=== PATIENT | female | born 1985 | race Caucasian/White ===

== ENCOUNTER 2016-08-16 18:46 | Emergency (ER) | payer OTHER ==
[~2016-08-16] VITALS: Ht 162.6 cm; Wt 125.0 kg
[~2016-08-16 18:46] MED LIST: ALD250 GTB; PREN1TAB17 PO; [UNRECOGNIZED DRUG - CODE] PO
[2016-08-16 19:01] VITALS: Ht 162.6 cm; Wt 125.0 kg
--- NOTE | 2016-08-16 20:13 | ERD ---
ER Documentation Chief Complaint Date/Time DATE: 08/16/16 TIME: 20:12 Chief Complaint Vaginal bleed and 12 weeks HPI This is a 30-year-old female who presents the emergency department today complaining of vaginal bleeding since August 12. Patient states that she passed a large clot today. States she is concerned because she is 12 weeks . Denies any fevers or chills, nausea vomiting or abdominal pain or dysuria. States she has a point with her LOCK[employer] POCKET [employer]TER tomorrow ROS All systems reviewed and are negative except as per history of present illness. Medications Home Meds Active Scripts Cephalexin* (Keflex*) 500 Mg Capsule, 500 MG PO QID for 7 Days, CAP Prov:ALONSO PUGH PA-C 08/16/16 Acetaminophen* (Tylophen*) 500 Mg Capsule, 1 CAP PO Q6H Y for PAIN AND OR ELEVATED TEMP, #30 CAP Prov:ALONSO PUGH PA-C 08/16/16 Reported Medications Diphenhydramine Hcl (ALLERGY MEDICATION) 25 Mg Tablet, 25 MG PO Q6 03/26/13 Vit-Iron Fumarate-FA ( Tablet) 1 Each Tablet, 1 EACH PO DAILY 03/13/13 Methyldopa* (Aldomet*) 250 Mg Tab, 250 MG GTB TID 12/19/12 Allergies Allergies: Coded Allergies: No Known Allergy (Unverified , 08/16/16) PMhx/Soc History of Surgery: No Anesthesia Reaction: No Hx Neurological Disorder: No Hx Respiratory Disorders: No Hx Cardiac Disorders: Yes (hypertension) Hx Psychiatric Problems: No Hx Miscellaneous Medical Probl: No Hx Alcohol Use: No Hx Substance Use: No Hx Tobacco Use: No Smoking Status: Never smoker Physical Exam Vitals Vital Signs Date Time Temp Pulse Resp B/P Pulse Ox O2 Delivery O2 Flow Rate FiO2 08/16/16 19:01 99.3 96 20 174/95 100 Physical Exam Const: Obese, no acute distress Head: Atraumatic Eyes: Normal Conjunctiva ENT: Normal External Ears, Nose and Mouth. Neck: Full range of motion..~ No meningismus. Resp: Clear to auscultation bilaterally Cardio: Regular rate and rhythm, no murmurs Abd: Soft, non tender, non distended. Normal bowel sounds Skin: No petechiae or rashes Neur: Awake and alert Psych: Normal Mood and Affect Result Diagram: 08/16/162037 Results 24 hrs Laboratory Tests Test 08/16/16 19:53 08/16/16 20:38 Urine Color PALE MATHEUS Urine Clarity HAZY Urine pH 6.0 Urine Specific [place] <=1.005 Urine Ketones NEGATIVE Urine Nitrite NEGATIVE Urine Bilirubin NEGATIVE Urine Urobilinogen 0.2 E.U./dL Urine Leukocyte Esterase 1+ Urine Microscopic RBC >200/HPF Urine Microscopic WBC 2-5/HPF Urine Squamous Epithelial Cells FEW Urine Bacteria RARE Urine Hemoglobin 3+ Urine Glucose NEGATIVE% Urine Total Protein NEGATIVE White Blood Count 6.310^3/ul Red Blood Count 3.8810^6/ul Hemoglobin 11.4g/dl Hematocrit 34.8% Mean Corpuscular Volume 89.7fl Mean Corpuscular Hemoglobin 29.4pg Mean Corpuscular Hemoglobin Concent 32.8g/dl Red Cell Distribution Width 13.2% Platelet Count 31348^3/UL Mean Platelet Volume 10.0fl Neutrophils % 68.7% Lymphocytes % 23.4% Monocytes % 6.2% Eosinophils % 0.8% Basophils % 0.3% Nucleated Red Blood Cells % 0.0/100WBC Neutrophils # 4.310^3/ul Lymphocytes # 1.510^3/ul Monocytes # 0.410^3/ul Eosinophils # 0.110^3/ul Basophils # 0.010^3/ul Nucleated Red Blood Cells # 0.010^3/ul Beta HCG, Quantitative 473.4mIU/ml DIAGNOSTIC IMAGING REPORT Patient: RHEA KENNY : 1985 Age: 30 Sex: F MR #: [id number] DOS: 08/16/161951 Ordering MD: ALONSO PUGH PA-C Location: [facility] Room/Bed: PROCEDURE: US OB Pelvis. CLINICAL INDICATION: , vaginal bleeding. TECHNIQUE: Multiple sonographic images of the pelvis were obtained utilizing a transabdominal and endovaginal technique. The images were reviewed on a PACS workstation. COMPARISON: None. FINDINGS: The uterus is visualized and measures 9.6 x 5.1 x 8.2 cm. The endometrium is thickened (1.8 cm). Doppler imaging reveals no vascularity within the endometrial canal. There is no evidence for free fluid. The right ovary has a normal echotexture and measures 3.1 x 1.4 x 2.7 cm. The left ovary measures 3.3 x 2.3 x 2.7 cm and contains a 2.3 cm mixed echogenicity structure, nonspecific. Vascular flow is demonstrated to both ovaries. No adnexal masses are noted. IMPRESSION: 1. No evidence of intrauterine . If there is clinical concern for ectopic , close follow-up with serial Beta HCG and possible repeat pelvic ultrasound is recommended. 2. Mildly thickened, avascular endometrium, nonspecific. 3. Nonspecific 2.3 cm mixed echogenicity structure within the left ovary, possibly a hemorrhagic cyst. A repeat pelvic ultrasound should be obtained and 6-12 weeks to reassess this finding. RPTAT: HTAR .Chetan Beavers MD, Date Time Electronically viewed and signed by .Chetan Beavers MD, on 08/16/2016 20:43 .R/ CC: ALONSO PUGH PA-C Procedures/[facility] This a 30-year-old female who presents to the emergency department today complaining of vaginal bleeding since August 12 and a clot that she passed today. Patient indicates she was approximately 12 weeks . Given this I did obtain a complete OB workup. Laboratory work shows no elevated white blood cell count. Her hemoglobin is mildly decreased. Platelets are within normal limits. UA shows 1+ leukocyte Estrace. Patient will be given a prescription for Keflex for urinary tract infection. Rh status A+ Positive Beta quant [id number] Ultrasound showed no evidence of intrauterine . Vascular flow is demonstrated both ovaries. There is no adnexal masses. There is a mildly thickened avascular endometrium which is nonspecific. There is a nonspecific 2.3 cm mixed echogenicity structure within the left ovary possibly hemorrhagic cyst. Patient symptoms at this time is consistent with vaginal bleeding in early . I have explained to the patient that this is possibly a failed versus early normal versus ectopic however patient has no abdominal pain on physical exam I have lower suspicion for that Patient also had hypertension here in the emergency department. She states that she has been told she has had hypertension in the past. She denies any headache or dizziness at this time. Low suspicion for hypertensive emergency or urgency however I have explained to the patient that she does need to follow- up with her primary care doctor in regards to this especially given that she had been . Patient understood. Patient denied any abdominal pain, nausea vomiting here in the emergency department. I will give her a prescription for Tylenol and Keflex for home for home. She was instructed to follow-up was planned with her [employer] POCKET [employer]TER tomorrow for a repeat beta quant. At this time the patient is stable for discharge and outpatient management. Patient should follow up with their PCP in the next 1-2 days. They may return to the emergency department sooner for any persistent or worsening of symptoms. Patient understood and agreed with the plan. Departure Diagnosis: Primary Impression: Vaginal bleeding in patient at less than 20 weeks gestation Additional Impression: UTI (urinary tract infection) Urinary tract infection type: site unspecified Hematuria presence: with hematuria Qualified Code: N39.0 - Urinary tract infection with hematuria, site unspecified Condition: Fair ALONSO PUGH PA-C Aug 16, 2016 20:13
[2016-08-16 20:21] LABS: ADD UMIC YES; URINE BILIRUBIN (Dip) NEGATIVE (NEGATIVE); URINE BLOOD (Dip) 3+ (NEGATIVE); URINE GLUCOSE (Dip) NEGATIVE (NEGATIVE); URINE KETONES (Dip) NEGATIVE (NEGATIVE); URINE LEUKOCYTE ESTERASE (Dip) 1+ (NEGATIVE); URINE NITRITE (Dip) NEGATIVE (NEGATIVE); URINE TOTAL PROTEIN (Dip) NEGATIVE (NEGATIVE); URINE UROBILINOGEN (Dip) 0.2 E.U./dL (0.1-1.0)
[2016-08-16 20:23] LABS: URINE COLOR PALE AMBER (YELLOW)
[2016-08-16 20:30] LABS: URINE RBCS >200 /HPF (0)
[2016-08-16 20:31] LABS: BACTERIA,URINE RARE; SQUAMOUS EPITHELIAL CELL,UR FEW
--- NOTE | 2016-08-16 20:43 | RADRPT ---
PROCEDURE: US OB Pelvis. CLINICAL INDICATION: , vaginal bleeding. TECHNIQUE: Multiple sonographic images of the pelvis were obtained utilizing a transabdominal and endovaginal technique. The images were reviewed on a PACS workstation. COMPARISON: None. FINDINGS: The uterus is visualized and measures 9.6 x 5.1 x 8.2 cm. The endometrium is thickened (1.8 cm). Do ppler imaging reveals no vascularity within the endometrial canal. There is no evidence for free fl uid. The right ovary has a normal echotexture and measures 3.1 x 1.4 x 2.7 cm. The left ovary measures 3 .3 x 2.3 x 2.7 cm and contains a 2.3 cm mixed echogenicity structure, nonspecific. Vascular flow is demonstrated to both ovaries. No adnexal masses are noted. IMPRESSION: 1. No evidence of intrauterine . If there is clinical concern for ectopic , close follow-up with serial Beta HCG and possible repeat pelvic ultrasound is recommended. 2. Mildly thickened, avascular endometrium, nonspecific. 3. Nonspecific 2.3 cm mixed echogenicity structure within the left ovary, possibly a hemorrhagic cy st. A repeat pelvic ultrasound should be obtained and 6-12 weeks to reassess this finding. RPTAT: HTAR .Chetan Beavers MD, MD Date Time Electronically viewed and signed by .Chetan Beavers MD, on 08/16/2016 20:43 .R/
[2016-08-16 20:47] LABS: ADD SCAN DIFF NO
[2016-08-16 20:50] LABS: BASOPHILS % 0.3 % (0.0-2.0); EOSINOPHILS # 0.1 10^3/ul (0.0-0.5); EOSINOPHILS % 0.8 % (0.0-7.0); HEMATOCRIT 34.8 % (37.0-47.0); HEMOGLOBIN 11.4 g/dl (12.0-16.0); LYMPHOCYTES # 1.5 10^3/ul (0.8-2.9); LYMPHOCYTES % 23.4 % (15.0-51.0); MEAN CORPUSCULAR HEMOGLOBIN 29.4 pg (29.0-33.0); MEAN CORPUSCULAR HGB CONC 32.8 g/dl (32.0-37.0); MEAN CORPUSCULAR VOLUME 89.7 fl (82.0-101.0); MONOCYTE # 0.4 10^3/ul (0.3-0.9); MONOCYTES % 6.2 % (0.0-11.0); NEUTROPHIL # 4.3 10^3/ul (1.6-7.5); NEUTROPHILS % 68.7 % (39.0-77.0); PLATELET COUNT 209 10^3/UL (140-415); RED BLOOD COUNT 3.88 10^6/ul (4.20-5.40); RED CELL DISTRIBUTION WIDTH 13.2 % (11.5-14.5); WHITE BLOOD COUNT 6.3 10^3/ul (4.8-10.8)
[2016-08-16] MEDS ORDERED: ACET500C5 PO (22:06)
[2016-08-16] MEDS ORDERED: CEPH-443 PO (22:06)
[2016-08-16 22:20] VITALS: BP 150/69; PULSE 80; RESP 16; TEMP 98.4
== END 2016-08-16 22:21 | disposition home or self-care (01) ==
LOC: FTE 18:46
DX: O20.9 Hemorrhage in early pregnancy, unspecified (principal); O10.011 Pre-existing essential hypertension complicating pregnancy, first trimester; O23.41 Unspecified infection of urinary tract in pregnancy, first trimester; Z3A.12 12 weeks gestation of pregnancy
CPT/HCPCS: 36415; 76801; 76817; 81001; 81003; 84702; 85025; 86900; 86901

== ENCOUNTER 2018-06-28 11:33 | Inpatient (IN) | payer OTHER ==
[~2018-06-28] VITALS: Ht 162.6 cm; Wt 126.9 kg
[~2018-06-28 11:33] MED LIST changes: +ACET500C5 PO; +CEPH-443 PO; +OXYTOCIN 30 UNITS/LR 500 ML BAG IV ONE; +PROPOFOL 200 MG INJ ONE; +[UNRECOGNIZED DRUG - CODE] PO; -[UNRECOGNIZED DRUG - CODE] PO
[2018-06-28] MEDS ORDERED: LACTATED RINGER'S 1,000 ML IV SCH (12:37)
[2018-06-28] MEDS ORDERED: LEVO50TA7 PO (12:42)
[2018-06-28] MEDS ORDERED: LABE200T7 PO (12:42)
[2018-06-28] MEDS ORDERED: ASPI-831 PO (12:42)
[2018-06-28 13:18] VITALS: Ht 162.6 cm; Wt 126.9 kg
[2018-06-28] MEDS ORDERED: ONDANSETRON 4 MG INJ IV STA (13:21)
[2018-06-28] MEDS: LABETALOL HCL 20MG INJ IV PRN ×2 (13:25→19:20)
--- NOTE | 2018-06-28 13:27 | PREAC ---
Date/Time of Note Date/Time of Note DATE: 06/28/18 TIME: 13:25 Anesthesia Eval and Record Evaluation Time Pre-Procedure Interview DATE: 06/28/18 TIME: 13:25 Age 32 Sex female NPO: 8 hrs Preoperative diagnosis preclampsia Planned procedure emergent C section Past Medical History Past Medical History: Includes Cardio: HTN, Dyslipidemia Endo: Hypothyroid GI: Morbid obesity : : Surgery & Anesthesia Issues Hx of difficult intubation, Significant blood loss Meds Anticoagulation: No Beta Ruma within 24 hr: No Reason Beta Ruma not given: Pt. not on B-Ruma Active Scripts Cephalexin* (Keflex*) 500 Mg Capsule, 500 MG PO QID for 7 Days, CAP Prov:ALONSO PUGH PA-C 08/16/16 Reported Medications Aspirin (Aspirin) 81 Mg Chew, 81 MG PO DAILY, TAB.CHEW 06/28/18 Labetalol Hcl (Normodyne) 200 Mg Tablet, 200 MG PO BID, TAB 06/28/18 Levothyroxine Sodium* (Levothyroxine Sodium*) 50 Mcg Tablet, 50 MCG PO BEFORE BREAKFAST, #30 TAB 06/28/18 Diphenhydramine Hcl (ALLERGY MEDICATION) 25 Mg Tablet, 25 MG PO Q6 03/26/13 Vit-Iron Fumarate-FA ( Tablet) 1 Each Tablet, 1 EACH PO DAILY 03/13/13 Methyldopa* (Aldomet*) 250 Mg Tab, 250 MG GTB TID 12/19/12 Discontinued Scripts Acetaminophen* (Tylophen*) 500 Mg Capsule, 1 CAP PO Q6H PRN for PAIN AND OR ELEVATED TEMP, #30 CAP Prov:ALONSO PUGH PA-C 08/16/16 Current Medications Lactated Ringer's 1,000 ml @ 125 mls/hr Q8H IV Last administered on 06/28/18at 12:58; Admin Dose 125 MLS/HR; Start 06/28/18 at 12:37 Cefazolin Sodium/ Dextrose 50 ml @ 100 mls/hr ONCE IVPB ; Start 06/28/18 at 13:30 Oxytocin/Lactated Ringer's 500 ml @ 125 mls/hr POST IV ; Start 06/28/18 at 13:30 Oxytocin/Lactated Ringer's 500 ml @ 0 mls/hr ONCE PRN IV .VAGINAL BLEEDING; Start 06/28/18 at 13:30 Methylergonovine Maleate (Methergine) 0.2 mg ONCE PRN IM .VAGINAL BLEEDING; Start 06/28/18 at 13:30 Carboprost Tromethamine (Hemabate) 250 mcg ONCE PRN IM .VAGINAL BLEEDING; Start 06/28/18 at 13:30 Misoprostol (Cytotec) 1,000 mcg ONCE PRN PA .VAGINAL BLEEDING; Start 06/28/18 at 13:30 Dexamethasone (Decadron) 6 mg ONCE ONCE IM ; Start 06/28/18 at 13:30; Stop 06/28/18 at 13:31 Magnesium Sulfate 100 ml @ 200 mls/hr ONCE IV ; Start 06/28/18 at 13:30; Stop 06/28/18 at 13:59 Magnesium Sulfate 500 ml @ 50 mls/hr Q10H IV ; Start 06/28/18 at 13:09 Labetalol HCl (Labetalol) 20 mg ONCE PRN IV ELEVATED BLOOD PRESSURE; Start 06/28/18 at 13:30 Ondansetron HCl (Zofran Inj) 4 mg ONCE STAT IV ; Start 06/28/18 at 13:21; Stop 06/28/18 at 13:22; Status UNV Metoclopramide HCl (Reglan) 10 mg ONCE ONCE IV ; Start 06/28/18 at 13:30; Stop 06/28/18 at 13:31; Status UNV Famotidine (Pepcid Iv) 20 mg ONCE ONCE IV ; Start 06/28/18 at 13:30; Stop 06/28/18 at 13:31; Status UNV Meds reviewed: Yes Allergies Coded Allergies: No Known Allergy (Unverified , 08/16/16) Allergies Reviewed: Yes Labs/Studies Labs Reviewed: Reviewed by anesthesiologist Result Diagram: 06/28/18 1229 Laboratory Tests 06/28/18 12:29 Blood Bank Test 06/28/18 12:29 Antibody Screen NEGATIVE Blood Type A POSITIVE Rh Immune Globulin Candidate NO test: Positive Pre-procedure Exam Airway: Adequate mouth opening, Adequate thyromental dist Mallampati: Mallampati IV Teeth: Normal Lung: Normal Heart: Normal ASA Physical Status ASA physical status: 3 Emergency: E Planned Anesthetic Neuraxial: Spinal Planned Pain Management Sub-arachniod narcotics, Parenteral pain med, Other neuraxial med Pre-operative Attestations Prior to commencing anesthesia and surgery, the patient was re-evaluated, there was verification of: *The patient's identity *The results of appropriate recent lab work and preoperative vital signs *The above evaluation not changing prior to induction *Anesthetic plan, risk benefits, alternative and complications discussed with patient/family; questions answered; patient/family understands, accepts and wishes to proceed. HARJEET GUILLERMO MD Jun 28, 2018 13:27
[2018-06-28] MEDS ORDERED: FAMOTIDINE 20 MG INJ IV ONE (13:30)
[2018-06-28] MEDS ORDERED: LEVALBUTEROL (NEB) 1.25 MG/0.5 ML AMP HHN PRN (13:30)
[2018-06-28] MEDS ORDERED: HYDROmorphONE 0.5 MG/0.5 ML SYG IV PRN ×2 (13:30)
[2018-06-28] MEDS ORDERED: IPRATROPIUM (NEB) 0.5 MG/2.5 ML AMP HHN PRN (13:30)
[2018-06-28] MEDS ORDERED: hydrALAzine 20 MG INJ IV PRN (13:30)
[2018-06-28] MEDS ORDERED: ZOLPIDEM 5 MG TAB PO PRN (13:30)
[2018-06-28] MEDS ORDERED: METHYLERGONOVINE 0.2 MG INJ IM PRN (13:30)
[2018-06-28] MEDS ORDERED: HYDROmorphONE 1 MG/5 ML IV SYRINGE IV PRN ×3 (13:30)
[2018-06-28] MEDS ORDERED: ONDANSETRON 4 MG INJ IV PRN ×3 (13:30→15:30)
[2018-06-28] MEDS ORDERED: DEXAMETHASONE 10 MG/ML 1 ML INJ IM ONE (13:30)
[2018-06-28] MEDS ORDERED: NALOXONE (0.4 MG/ML) INJ IV PRN (13:30)
[2018-06-28] MEDS ORDERED: KETOROLAC 30 MG INJ IV PRN ×2 (13:30)
[2018-06-28] MEDS ORDERED: MAGNESIUM SULFATE 4 GM/100 ML 100 ML IV SCH (13:30)
[2018-06-28] MEDS ORDERED: DIPHENHYDRAMINE 50 MG INJ IV PRN ×3 (13:30→15:30)
[2018-06-28] MEDS ORDERED: LABETALOL HCL 20MG INJ IV PRN (13:30)
[2018-06-28] MEDS ORDERED: FENTAnyl 50 MCG/ML VIAL IV PRN ×2 (13:30)
[2018-06-28] MEDS ORDERED: OXYTOCIN 30 UNITS/LR 500 ML IV PRN ×2 (13:30→15:30)
[2018-06-28] MEDS ORDERED: MISOPROSTOL 200 MCG TAB PR PRN ×2 (13:30→15:30)
[2018-06-28] MEDS ORDERED: OXYTOCIN 30 UNITS/LR 500 ML IV SCH (13:30)
[2018-06-28] MEDS ORDERED: CEFAZOLIN 2 GM/50 ML (PMX) 50 ML IVPB SCH (13:30)
[2018-06-28] MEDS ORDERED: CARBOPROST 250 MCG INJ IM PRN ×2 (13:30→15:30)
[2018-06-28] MEDS ORDERED: METOCLOPRAMIDE 10 MG INJ IV ONE (13:30)
[2018-06-28] MEDS ORDERED: morphine SULFATE/PF (10 MG/10 ML) INJ ONE (13:34)
[2018-06-28] MEDS ORDERED: OXYTOCIN 10 UNIT INJ ONE (13:35)
[2018-06-28] MEDS: MAGNESIUM SULFATE 20 GM/500 ML 500 ML IV SCH ×2 (14:05→22:57)
--- NOTE | 2018-06-28 15:12 | HP ---
Date/Time of Note Date/Time of Note DATE: 06/28/18 TIME: 15:02 OB - History Hx of Present Free Text/Dictation 32 YO with IUP at 36 weeks with EDC 07/28/2018. she was seen in triage with severe range blood pressure. she continued with severe range blood pressure in L&D as well. she has chronic hypertension and also h/o Eclampsia with last . She has history of previous delivery. She desires to have repeat delivery. I discussed with the patient the risks, benefits, indications, and alternatives of procedure including but not limited to risks of infection, bleeding, damage to other organs, bowel, bladder, hernia formation, scar formation, possibility of blood transfusion, possible need for emergency hysterectomy. She was allowed to ask questions. All her questions were answered. Informed consent has been obtained. Care: Good Care Ultrasounds: Normal mid trimester US Obstetrical Complications: Pre-eclampsia, Gestational Hypertension Medical Complications: Other (Hypertension) Past Family/Social History * Past Medical, Surgical, Family and Obstetric Histories reviewed from chart. OB Admission Exam Physical Exam HEENT: WNL Heart: Rhythm Normal Lungs: Clear, Equal Abdomen: WNL Extremities: Normal Reflexes: Normal Last 72 hours Lab Results CBC & BMP 06/28/18 12:29 Liver Function Test 06/28/18 12:29 Alanine Aminotransferase (ALT/SGPT) 32 Albumin 3.8 Alkaline Phosphatase 143 H Aspartate Amino Transf (AST/SGOT) 32 Direct Bilirubin 0.00 Total Protein 7.0 OB Assessment/Plan Other Assessment: IUP at 36 weeks Chronic Hypertension. Superimposed Preeclampsia with severe features. h/o delivery Plan: Section KARL BOJORQUEZ MD Jun 28, 2018 15:12
[2018-06-28] MEDS: LACTATED RINGER'S 1,000 ML IV* SCH (15:14)
[2018-06-28] MEDS ORDERED: BENZOCAINE 20% 56 ML SPRAY TOP PRN (15:30)
[2018-06-28] MEDS ORDERED: SENNA/DOCUSATE NA (8.6MG/50MG) TAB PO PRN (15:30)
[2018-06-28] MEDS ORDERED: NA PHOSPHATE/BIPHOS 133 ML ENEMA PR PRN (15:30)
[2018-06-28] MEDS ORDERED: HYDROCODONE/APAP (5/325) TAB PO PRN (15:30)
[2018-06-28] MEDS ORDERED: LANOLIN HPA 1 PKT TOP PRN (15:30)
[2018-06-28] MEDS ORDERED: MAGNESIUM HYDROXIDE 30ML CUP PO PRN (15:30)
[2018-06-28] MEDS ORDERED: DIPHENHYDRAMINE 25 MG CAP PO PRN (15:30)
[2018-06-28] MEDS ORDERED: WITCH HAZEL/GLYCERIN PAD PR PRN (15:30)
[2018-06-28] MEDS ORDERED: DIBUCAINE 1% 30 GM OINT TOP PRN (15:30)
[2018-06-28] MEDS ORDERED: ONDANSETRON 4 MG TAB PO PRN (15:30)
[2018-06-28] MEDS ORDERED: PHENYLephrine (100 MCG/ML) 10ML SYG ONE (15:37)
--- NOTE | 2018-06-28 16:30 | OPR ---
Date/Time of Note Date/Time of Note DATE: 06/28/18 TIME: 16:25 Operative Report Procedure Date: Jun 28, 2018 Preoperative Diagnosis history of previous delivery IUP at 36 weeks Chronic hypertension with superimposed gestational hypertension Postoperative Diagnosis same left ovarian cyst Operation/Procedure Performed repeat delivery left ovarian cystectomy Surgeon Cedric Lee MD Sand Cutter Dr. Tran Anesthesia Type: spinal Estimated Blood Loss: other (700 ml) Transfusion none Specimen left ovarian cyst Grafts/Implants none Tubes/Drains Sibley Cath Complications none Pt Condition Post Procedure: stable Disposition: PACU Procedure Description The risks, benefits, indications, alternatives of procedure including, but not limited to risk of infection, bleeding, damage to other organs, bowel, bladder, hernia formation, scar formation, possibility of blood transfusions discussed with patient. She was allowed to ask questions. All her questions were answered. Informed consent was obtained. DESCRIPTION OF PROCEDURE: She was taken to the operating room. Spinal anesthesia was induced. She was prepped and draped in the usual sterile fashion. Surgical time out one. Anesthesia was tested to be adequate. With permission from anesthesiologist, a knife was used to make a Pfannenstiel skin incision. The incision was taken down in layers. The fascia was cut, undermined and from the underlying muscle using sharp and blunt dissection. All the bleeders were cauterized. Peritoneum was entered bluntly. A low transverse incision was developed over the uterus. Amniotic fluid was clear and adequate. A viable in vertex presentation was delivered without any difficulty. The cord was clamped and cut, handed to awaiting team. Placenta was then delivered. Uterus was exteriorized, wrapped around a moist lap. Inside uterus was cleaned using a dry lap. All residual membranes were removed. The uterine incision was then closed using #1 Monocryl in 2 layers. Left 3 cm ovarian cyst noted and informed verbal consent obtained from patient to perform cystectomy. ovary was cut with Knife and the cyst was dissected and removed intact. ovary was closed with 2-0 Chromic on SH. All bleeding stopped. The uterus was inserted back inside the abdominal cavity. Irrigation was done carefully. Careful evaluation of the uterine incision revealed no further bleeding. The tubal ligation sites were evaluated carefully. There was no bleeding. The peritoneum and rectus muscles and fascia were evaluated. All bleeders cauterized. Peritoneum was closed using 2-0 Monocryl. At this time, the count was correct. Rectus muscle was reapproximated using 2-0 Monocryl. Rectus fascia was closed using #1 Vicryl. Subcutaneous tissue was cleaned and irrigated. All bleeders cauterized and the skin closed using 4-0 Monocryl. All counts correct. CEDRIC LEE MD Jun 28, 2018 16:30
[2018-06-28 21:00] VITALS: BP 135/73; PULSE 72; RESP 18
[2018-06-28] MEDS: SENNA/DOCUSATE NA (8.6MG/50MG) TAB PO SCH (21:00)
[2018-06-28 22:00] VITALS: BP 150/71; PULSE 86; RESP 18
[2018-06-28 23:00] VITALS: BP 139/66; PULSE 83; RESP 18
[2018-06-29] VITALS (18 sets, daily range): BP systolic 130–149; BP diastolic 62–78; PULSE 80–99; RESP 18–20
[2018-06-29] MEDS: LACTATED RINGER'S 1,000 ML IV* SCH ×4 (00:04→23:14)
[2018-06-29] MEDS: LEVOTHYROXINE 50 MCG TAB PO SCH (06:18)
[2018-06-29] MEDS: SENNA/DOCUSATE NA (8.6MG/50MG) TAB PO SCH ×2 (09:01→20:27)
[2018-06-29] MEDS: MAGNESIUM SULFATE 20 GM/500 ML 500 ML IV SCH (09:01)
[2018-06-29] MEDS: NIFEdipine (XL) 60 MG TAB PO SCH (10:45)
--- NOTE | 2018-06-29 19:45 | PN ---
Date/Time of Note Date/Time of Note DATE: 06/29/18 TIME: 19:42 OB Subjective Subjective Subjective Denies any headache, blurred vision, epigastric pain or right upper quadrant pain. Has not passed flatus yet. Breast-feeding. Has not been out of the bed yet. Tolerated clear liquid diet. Denies any shortness of breath or chest pain OB Objective Objective Objective General appearance: Alert and oriented x4 does not appear to be in any acute distress Abdomen: Soft, appropriate tenderness in the area of noted. Dressing clean dry and intact Fundus firm Breast: No evidence of mastitis or fissure Extremities: No calf tenderness, 2+ bilateral symmetric edema, no cord palpable negative Homans sign, SCDs are in place Lungs: Clear to auscultation CV: RRR VS - Last 72 Hours, by Label Date Temp Pulse Resp B/P (MAP) Pulse Ox O2 O2 Flow FiO2 Time Delivery Rate 06/29/18 98.2 87 20 143/68 99 Room Air 16:00 (93) 06/29/18 92 19 143/66 Room Air 15:00 (91) 06/29/18 95 19 147/67 Room Air 14:00 (93) 06/29/18 89 19 146/78 13:00 (100) 06/29/18 97.8 97 19 146/69 98 Room Air 12:00 (94) 06/29/18 94 20 149/72 Room Air 11:00 (97) 06/29/18 89 19 142/75 10:00 (97) 06/29/18 94 20 137/76 Room Air 09:00 (96) 06/29/18 98.6 87 19 143/76 98 Room Air 08:00 (98) 06/29/18 98.1 87 18 143/67 Room Air 07:00 (92) 06/29/18 98.1 94 18 138/63 Room Air 06:00 (88) 06/29/18 98.1 88 18 140/67 Room Air 05:00 (91) 06/29/18 98.1 85 18 134/63 96 Room Air 04:00 (86) 06/29/18 98.1 88 18 146/70 Room Air 03:00 (95) 06/29/18 98.0 91 18 139/67 Room Air 02:00 (91) 06/29/18 98.0 99 18 146/76 Room Air 01:00 (99) 06/29/18 98.1 87 18 145/66 97 Room Air 00:00 (92) 06/28/18 98.1 83 18 139/66 Room Air 23:00 (90) 06/28/18 98.3 86 18 150/71 Room Air 22:00 (97) 06/28/18 98.4 72 18 135/73 97 Room Air 21:00 (93) Laboratory Tests Test 06/28/18 12:29 06/28/18 13:00 06/28/18 18:26 06/29/18 00:24 White Blood 6.9 10^3/ul Count Red Blood Count 3.56 10^6/ul Hemoglobin 10.6 g/dl Hematocrit 32.1 % Mean Corpuscular 90.2 fl Volume Mean Corpuscular 29.8 pg Hemoglobin Mean Corpuscular 33.0 g/dl Hemoglobin Lynn nt Red Cell 13.1 % Distribution Width Platelet Count 214 10^3/UL Mean Platelet 10.2 fl Volume Immature 0.600 % Granulocytes % Neutrophils % 74.3 % Lymphocytes % 15.3 % Monocytes % 6.5 % Eosinophils % 2.9 % Basophils % 0.4 % Nucleated Red 0.0 /100WBC Blood Cells % Immature 0.040 10^3/ul Granulocytes # Neutrophils # 5.1 10^3/ul Lymphocytes # 1.1 10^3/ul Monocytes # 0.5 10^3/ul Eosinophils # 0.2 10^3/ul Basophils # 0.0 10^3/ul Nucleated Red 0.0 10^3/ul Blood Cells # Prothrombin Time 12.8 Sec Prothrombin Time 1.0 Ratio INR 0.95 International Normalized Ratio Activated 26.7 Sec Partial Thrombop last Time Fibrinogen 569.0 mg/dl Sodium Level 135 mmol/L Potassium Level 4.4 mmol/L Chloride Level 105 mmol/L Carbon Dioxide 23 mmol/L Level Anion Gap 7 Blood Urea 10 mg/dl Nitrogen Creatinine 0.43 mg/dl Est Glomerular > 60 mL/min Filtrat Rate mL/min Glucose Level 79 mg/dl Uric Acid 4.6 mg/dl Calcium Level 9.6 mg/dl Total Bilirubin 0.1 mg/dl Direct Bilirubin 0.00 mg/dl Indirect 0.1 mg/dl Bilirubin Aspartate Amino 32 IU/L Transf (AST/SGOT ) Alanine 32 IU/L Aminotransferase (ALT/SGPT) Alkaline 143 IU/L Phosphatase Total Protein 7.0 g/dl Albumin 3.8 g/dl Globulin 3.20 g/dl Albumin/Globulin 1.18 Ratio Hepatitis B NEGATIVE Surface Antigen Urine Color STRAW Urine Clarity CLEAR Urine pH 7.0 Urine Specific 1.002 [place] Urine Ketones NEGATIVE mg/dL Urine Nitrite NEGATIVE mg/dL Urine Bilirubin NEGATIVE mg/dL Urine NEGATIVE mg/dL Urobilinogen Urine Leukocyte NEGATIVE Bryson/ul Esterase Urine Hemoglobin NEGATIVE mg/dL Urine Glucose NEGATIVE mg/dL Urine Total NEGATIVE mg/dl Protein Magnesium Level 4.3 mg/dl 4.8 mg/dl Test 06/29/18 06:12 06/29/18 07:15 06/29/18 14:11 Lab Scanned REFERENCE Report LAB [id number] White Blood 9.6 10^3/ul Count Red Blood Count 2.98 10^6/ul Hemoglobin 9.0 g/dl Hematocrit 27.5 % Mean Corpuscular 92.3 fl Volume Mean Corpuscular 30.2 pg Hemoglobin Mean Corpuscular 32.7 g/dl Hemoglobin Lynn nt Red Cell 13.2 % Distribution Width Platelet Count 199 10^3/UL Mean Platelet 10.1 fl Volume Immature 0.600 % Granulocytes % Neutrophils % 78.0 % Lymphocytes % 12.6 % Monocytes % 8.0 % Eosinophils % 0.6 % Basophils % 0.2 % Nucleated Red 0.0 /100WBC Blood Cells % Immature 0.060 10^3/ul Granulocytes # Neutrophils # 7.5 10^3/ul Lymphocytes # 1.2 10^3/ul Monocytes # 0.8 10^3/ul Eosinophils # 0.1 10^3/ul Basophils # 0.0 10^3/ul Nucleated Red 0.0 10^3/ul Blood Cells # Magnesium Level 5.3 mg/dl 4.9 mg/dl OB Assessment/Plan Other Assessment: Status post repeat section for severe PIH and left ovarian cystectomy Postoperative day #1, for less than 24 hours , on magnesium sulfate for seizure prophylaxis No evidence of magnesium toxicity Blood pressures are currently well controlled with nifedipine extended release 60 mg Vitals are stable Doing well Routine postop care Advance diet DC Sibley after 24 hours postdelivery when magnesium DC'd Ambulation after off of magnesium ALONDRA ZACARIAS MD Jun 29, 2018 19:45
[2018-06-29] MEDS: HYDROCODONE/APAP (5/325) TAB PO PRN (20:28)
[2018-06-30] MEDS: HYDROCODONE/APAP (5/325) TAB PO PRN ×2 (02:28→22:13)
[2018-06-30 04:18] VITALS: BP 148/76; PULSE 84; RESP 20
[2018-06-30] MEDS: LEVOTHYROXINE 50 MCG TAB PO SCH (05:44)
[2018-06-30] MEDS: LACTATED RINGER'S 1,000 ML IV* SCH ×2 (07:14→15:14)
[2018-06-30 08:00] VITALS: BP 142/65; PULSE 82; RESP 20
[2018-06-30] MEDS: SENNA/DOCUSATE NA (8.6MG/50MG) TAB PO SCH ×2 (08:33→21:15)
[2018-06-30] MEDS: NIFEdipine (XL) 60 MG TAB PO SCH (08:33)
[2018-06-30] MEDS ORDERED: DIPHTH/TET/ACEL PERTUSS (ADULT) 0.5 ML VIAL IM* ONE (09:00)
[2018-06-30] MEDS ORDERED: VARICELLA VACCINE LIVE/PF 1,350 UNIT/0.5 ML ML SC* ONE (09:00)
[2018-06-30] MEDS ORDERED: MEASLES,MUMPS,RUBELLA VACCINE INJ SC* ONE (09:00)
--- NOTE | 2018-06-30 14:07 | DS ---
Date/Time of Note Date/Time of Note DATE: 06/30/18 TIME: 14:02 Obstetrical Discharge Record Final Diagnosis Final Diagnosis: Term delivered Section Section: Repeat Complications Preg induced Hypertension Augmentation: No Induction: No Rupture of Membranes: No Condition on Discharge Physical Assessment Voiding: Yes Bowel Movement: Yes Breast: Soft, non-tender, Filling Fundus: Firm Abdomen and Incision: soft, appropriate tenderness. incision is without sign of infection Calf Tenderness: No Patient Condition: Good KARL BOJORQUEZ MD Jun 30, 2018 14:07
--- NOTE | 2018-06-30 14:15 | QN ---
Documentation Comment I also provided Rx for patient to take Procardia XL 60 mg po daily at home and continue with her own Labetalol 200 mg Q 8 hrs KARL BOJORQUEZ MD Jun 30, 2018 14:15
[2018-06-30] MEDS: LABETALOL 200 MG TAB PO SCH ×3 (14:30→22:13)
[2018-06-30 16:00] VITALS: BP 138/74; PULSE 94; RESP 20
[2018-06-30 19:50] VITALS: BP 142/62; PULSE 95; RESP 18
[2018-07-01 03:49] VITALS: BP 135/52; PULSE 79; RESP 18
[2018-07-01] MEDS: LEVOTHYROXINE 50 MCG TAB PO SCH (05:32)
[2018-07-01] MEDS: NIFEdipine (XL) 60 MG TAB PO SCH (09:20)
[2018-07-01 09:21] VITALS: BP 160/90; PULSE 84; RESP 20
[2018-07-01] MEDS: LABETALOL 200 MG TAB PO SCH (09:21)
[2018-07-01] MEDS: SENNA/DOCUSATE NA (8.6MG/50MG) TAB PO SCH (09:21)
[2018-07-01 10:45] VITALS: BP 144/70; RESP 20
[2018-07-01] MEDS: HYDROCODONE/APAP (5/325) TAB PO PRN (13:13)
== END 2018-07-01 15:20 | disposition home or self-care (01) | DRG 788 ==
LOC: L-D 11:33 → PP1 20:57
PROVIDERS: ADMIT Specialist; ATTEND Specialist
PROC: 10D00Z1 Extraction of Products of Conception, Low, Open Approach (ICD-10-PCS; principal; 2018-06-28)
PROC: 0UB10ZZ Excision of Left Ovary, Open Approach (ICD-10-PCS; 2018-06-28)
DX: O11.4 Pre-existing hypertension with pre-eclampsia, complicating childbirth (principal); O10.02 Pre-existing essential hypertension complicating childbirth; O99.214 Obesity complicating childbirth; E66.01 Morbid (severe) obesity due to excess calories; O99.284 Endocrine, nutritional and metabolic diseases complicating childbirth; E03.9 Hypothyroidism, unspecified; E78.5 Hyperlipidemia, unspecified; O34.211 Maternal care for low transverse scar from previous cesarean delivery; O34.83 Maternal care for other abnormalities of pelvic organs, third trimester; N83.202 Unspecified ovarian cyst, left side; Z3A.36 36 weeks gestation of pregnancy; Z37.0 Single live birth
CPT/HCPCS: 80053; 81003; 83735; 84560; 85025; 85384; 85610; 85730; 86592; 86850; 86900; 86901; 87340; 88305; 99464; J0690; J1100; J1885; J2274; J2370; J2405; J2590; J2765; J3475; J7120